=== PATIENT | female | born 1975 | race Caucasian/White ===

== ENCOUNTER 2020-06-09 14:37 | Observation (INO) ==
[2020-06-09] MEDS ORDERED: Isovue-370 500 ML BOTTLE IVP ONE (18:02)
[2020-06-09] MEDS ORDERED: 0.9 % Sodium Chloride 1,000 ML IVC ONE (18:02)
[2020-06-09] MEDS ORDERED: Ondansetron 4 MG/2 ML VIAL IVP ONE (18:02)
[2020-06-09] MEDS ORDERED: *HR* FentaNYL (PF) 100 MCG/2 ML VIAL IVP ONE (18:02)
[2020-06-09 18:18] LABS: Bilirubin,Urine Negative (Negative); Blood,Urine Negative (Negative); Clarity,Urine Clear (Clear); Color,Urine Yellow (Yellow); Glucose,Urine (UA) Normal (Normal); Ketones,Urine Negative (Negative); Leukocyte Esterase,Urine Negative (Negative); Mucus,Urine Few per lpf (None-Few); Nitrite,Urine Negative (Negative); PH,Urine 6.5 pH Units (5.0-8.0); Protein,Urine 30 mg/dL (Neg-Trace); Specific Gravity,Urine > 1.030 (1.010-1.025); Squamous Epithelial Cell,Urine Few per hpf (None-Few); Urobilinogen,Urine Normal (Normal); WBC,Urine 0-3 per hpf (0-3)
[2020-06-09 18:20] LABS: Basophils % 0.3 %; Eosinophils % 0.2 %; Hematocrit 44.7 % (35.3-44.9); Hemoglobin 14.6 g/dL (11.5-15.4); Immature Granulocytes % 0.5 % (0-4); Lymphocytes # 2.6 K/mcL (0.6-4.6); Lymphocytes % 17.3 %; Mean Corpuscular HGB Conc 32.7 g/dL (31.6-35.5); Mean Corpuscular Hemoglobin 29.6 pg (28.0-33.3); Mean Corpuscular Volume 90.5 fL (83.0-100.0); Mean Platelet Volume 9.8 fL (9.4-12.4); Monocytes # 0.6 K/mcL (0.0-1.3); Monocytes % 4.1 %; Neutrophils # 11.6 K/mcL (1.6-8.9); Platelet Count 237 K/mcL (140-400); Red Blood Count 4.94 M/mcL (3.82-4.97); Red Cell Distribution Width 13.6 % (11.5-14.5); Segmented Neutrophils % 77.6 %; White Blood Count 14.9 K/mcL (4.3-11.1)
[2020-06-09 18:47] LABS: Alanine Aminotransferase 19 Units/L (7-52); Albumin 4.4 g/dL (3.5-5.7); Albumin/Globulin Ratio 1.6 (1.1-2.2); Alkaline Phosphatase 70 Units/L (34-104); Amylase 28 Units/L (29-103); Aspartate Amino Transferase 15 Units/L (13-39); BUN/Creatinine Ratio 18 (6-26); Bilirubin,Direct 0.1 mg/dL (0.0-0.2); Bilirubin,Indirect 0.3 mg/dL (0.0-1.0); Bilirubin,Total 0.4 mg/dL (0.3-1.0); Blood Urea Nitrogen 14 mg/dL (6-20); Carbon Dioxide 24 mEq/L (23-29); Chloride 105 mEq/L (98-107); Globulin 2.8 g/dL (2.4-3.5); Glucose 165 mg/dL (70-105); Lipase 9 Units/L (11-82); Osmolality,Calculated 288 (280-300); Sodium 137 mEq/L (136-145); Total Protein 7.2 g/dL (6.4-8.9); eGFR For African Americans > 60 (> 60); eGFR For Non-African Americans > 60 (> 60)
[2020-06-09] MEDS ORDERED: Piperacillin/Tazobactam 3.375 GM in 0.9 % Sodium Chloride Mini Bag 100 ML IVPB ONE (20:17)
[2020-06-09] MEDS: 0.9 % Sodium Chloride 1,000 ML IVC SCH (20:49)
[2020-06-09] MEDS ORDERED: Ondansetron 4 MG/2 ML VIAL IVP PRN (22:34)
[2020-06-10] MEDS ORDERED: Ondansetron 4 MG/2 ML VIAL IVP SCH
[2020-06-10] MEDS: 0.9 % Sodium Chloride 1,000 ML IVC SCH (05:35)
[2020-06-10] MEDS ORDERED: Piperacillin/Tazobactam 3.375 GM in 0.9 % Sodium Chloride Mini Bag 100 ML IVPB SCH (06:00)
[2020-06-10] MEDS ORDERED: Pantoprazole 40 MG VIAL IVP SCH ×2 (09:54→18:00)
[2020-06-10] MEDS ORDERED: *HR* FentaNYL (PF) 100 MCG/2 ML VIAL ONE (11:48)
[2020-06-10] MEDS ORDERED: Ondansetron 4 MG/2 ML VIAL ONE (11:49)
[2020-06-10] MEDS ORDERED: Lidocaine -MPF 2% 2 ML VIAL ONE (11:49)
[2020-06-10] MEDS ORDERED: *HR* Rocuronium Bromide 50 MG/5 ML VIAL ONE ×2 (11:49→13:40)
[2020-06-10] MEDS ORDERED: Lidocaine HCL 4 ML Topical Solution (Laryng-O-Jet Kit Sterile Pak) TP ONE (11:49)
[2020-06-10] MEDS ORDERED: *HR* Succinylcholine 200 MG/10 ML VIAL IVP ONE (11:49)
[2020-06-10] MEDS ORDERED: Acetaminophen IV 1,000 MG/100 ML BAG IVPB SCH (12:00)
[2020-06-10] MEDS ORDERED: *HR* OxyCODONE Immed Rel 5 MG TABLET PO PRN (12:16)
[2020-06-10] MEDS ORDERED: *HR* HYDROmorphone PF 0.5 MG/0.5 ML SYRINGE IVP PRN (12:16)
[2020-06-10] MEDS ORDERED: *HR* HYDROMORPHONE 2 MG/ML VIAL ONE (13:33)
[2020-06-10] MEDS ORDERED: *HR* OxyCODONE/APAP 5/325 TABLET PO PRN (15:21)
[2020-06-10] MEDS ORDERED: Ondansetron 4 MG/2 ML VIAL IVP PRN (15:21)
[2020-06-10] MEDS: Pantoprazole 40 MG VIAL IVP SCH (17:07)
[2020-06-10] MEDS: Ketorolac 15 MG/ML VIAL IVP SCH ×2 (17:07→23:39)
[2020-06-10] MEDS: Piperacillin/Tazobactam 3.375 GM in 0.9 % Sodium Chloride Mini Bag 100 ML IVPB SCH (21:10)
[2020-06-11 05:22] LABS: Basophils % 0.2 %; Eosinophils % 0.1 %; Hematocrit 37.7 % (35.3-44.9); Immature Granulocytes % 0.2 % (0-4); Lymphocytes % 15.8 %; Mean Corpuscular HGB Conc 32.9 g/dL (31.6-35.5); Mean Corpuscular Hemoglobin 30.3 pg (28.0-33.3); Mean Corpuscular Volume 92.2 fL (83.0-100.0); Mean Platelet Volume 9.7 fL (9.4-12.4); Monocytes # 0.5 K/mcL (0.0-1.3); Monocytes % 4.2 %; Platelet Count 195 K/mcL (140-400); Red Blood Count 4.09 M/mcL (3.82-4.97); Red Cell Distribution Width 13.2 % (11.5-14.5); Segmented Neutrophils % 79.5 %; White Blood Count 12.6 K/mcL (4.3-11.1)
[2020-06-11 05:23] LABS: Hemoglobin 12.4 g/dL (11.5-15.4)
[2020-06-11] MEDS: Pantoprazole 40 MG VIAL IVP SCH (06:06)
[2020-06-11] MEDS: Piperacillin/Tazobactam 3.375 GM in 0.9 % Sodium Chloride Mini Bag 100 ML IVPB SCH (06:06)
[2020-06-11] MEDS: Ketorolac 15 MG/ML VIAL IVP SCH ×2 (06:07→11:14)
[2020-06-11] MEDS ORDERED: lisinopriL 10 MG TABLET PO SCH (09:00)
[2020-06-11 10:51] VITALS: BP 133/80
== END 2020-06-11 16:31 | disposition home or self-care (01) ==
LOC: 3ANU 14:37 → EMEROOARM 14:37 → 3ANU 21:35
PROVIDERS: ADMIT Surgery; ATTEND Surgery